=== PATIENT | male | born 1995 | race Caucasian/White ===

== ENCOUNTER 2023-09-16 14:09 | Emergency (ER) | payer OTHER ==
[~2023-09-16] VITALS: Ht 180.3 cm; Wt 86.2 kg
[2023-09-16 14:32] VITALS: BP 115/55; PULSE 63; RESP 20; TEMP 97.6; O2SAT 99
[2023-09-16 15:19] LABS: FLU A ANTIGEN negative (NEGATIVE); FLU B ANTIGEN negative (NEGATIVE)
[2023-09-16] MEDS ORDERED: IBUP-2213 PO (16:51)
[2023-09-16] MEDS ORDERED: PROM118S5 PO (16:51)
[2023-09-16] MEDS ORDERED: ALBU0.0912 IH (16:51)
== END 2023-09-16 17:00 | disposition home or self-care (01) ==
LOC: MED 14:09
DX: J06.9 Acute upper respiratory infection, unspecified (principal); Z20.822 Contact with and (suspected) exposure to COVID-19; F17.210 Nicotine dependence, cigarettes, uncomplicated; F12.90 Cannabis use, unspecified, uncomplicated; Z79.899 Other long term (current) drug therapy
CPT/HCPCS: 71045; 99284